=== PATIENT | female | born 1990 | race Caucasian/White ===

== ENCOUNTER 2018-05-24 16:35 | Emergency (ER) | payer OTHER ==
[~2018-05-24] VITALS: Ht 160 cm; Wt 53.5 kg
[2018-05-24] MEDS ORDERED: SYNTHROID100 MCG (16:42)
== END 2018-05-24 19:34 | disposition home or self-care (01) ==
LOC: ER 16:35
DX: S90.31XA Contusion of right foot, initial encounter (principal); W22.09XA Striking against other stationary object, initial encounter; Y93.01 Activity, walking, marching and hiking; Y92.832 Beach as the place of occurrence of the external cause; Y99.8 Other external cause status; T63.691A Toxic effect of contact with other venomous marine animals, accidental (unintentional), initial encounter